=== PATIENT | female | born 2000 | race African-American/Black ===

== ENCOUNTER 2023-12-14 16:13 | Emergency (ER) | payer MEDICAID, SELFPAY ==
--- NOTE | ~2023-12-14 | XR_ITS ---
EXAMINATION: XR ABDOMEN KUB CLINICAL INDICATION: Abdominal pain COMPARISON: None available. TECHNIQUE: AP view of the abdomen. FINDINGS: The bowel gas pattern is normal with no evidence of ileus or obstruction. No unusual soft tissue calcifications are noted. The bones are unremarkable. XR/XR KUB IMPRESSION: Unremarkable examination.
--- NOTE | 2023-12-14 16:23 | ED.FEMALEGU ---
HPI - Female Genitourinary General Chief complaint: Abdominal Pain Stated complaint: unable to void, abd pain, back cramps Time Seen by Provider: 12/14/23 17:24 Source: patient Mode of arrival: ambulatory Limitations: no limitations History of Present Illness HPI Narrative: 23-year-old female who presents emergency department for evaluation of abdominal pain which began at midnight. The patient states she woke up suddenly with lower abdominal pain. She describes the pain is a sharp cramping pain she points to her suprapubic area. She states the pain is been intermittent. The pain is 10/10 at its worse and at the time my evaluation the pain was 7/10. The patient had associated nausea with vomiting. She had multiple episodes of loose diarrheal stool and she states she did notice some blood in the stool. She denied fever, chills, rhinorrhea, sore throat, cough, chest pain, shortness of breath. She denied frequency, urgency or dysuria. She denied myalgias arthralgias. Related Data Previous Rx's Medication Instructions Recorded acetaminophen 500 mg tablet 1,000 mg (2 x 500 mg) PO Q6H PRN 12/14/23 (Tylenol Extra Strength) fever or pain #20 tabs ibuprofen 400 mg tablet 400 mg PO TID PRN fever or pain 12/14/23 #30 tabs ondansetron 4 mg disintegrating 4 mg PO Q6-8H PRN nausea and 12/14/23 tablet vomiting #14 tabs Allergies Allergy/AdvReac Type Severity Reaction Status Date / Time No Known Allergies Allergy Verified 12/14/23 16:23 Review of Systems Review of Systems: Yes all other systems are reviewed and are negative [facility] Past Medical History [facility] Narrative: Social history: The patient denies tobacco use. She occasionally drinks alcohol. She does smoke marijuana 5 times a week. Social History Social History Smoked in Last 30 Days: No Use of substances other than those prescribed or required for medical reasons: Yes Substance Use Type: Marijuana Patient : No Physical Exam Vital Signs: Vital Signs: Last Vital Signs Temp 97.3 F 12/14/23 16:24 Pulse 91 12/14/23 16:24 Resp 18 12/14/23 16:24 BP 114/72 12/14/23 16:24 Pulse Ox 100 12/14/23 16:24 O2 Del Method Room Air 12/14/23 16:24 BMI result Body Mass Index 27.0 Vital signs were normal Exam: General: Awake, alert in no distress Head: Normocephalic, atraumatic EENT: PERRL, Lids normal, sclera normal, conjunctiva normal, nose normal , ears normal, throat without erythema or exudates Neck: Supple, no adenopathy Lung: breath sounds symmetric, no wheezing, rales or rhonchi Chest: symmetric movement, nontender Heart: regular rate and rhythm, normal S1, S2 no murmurs or rubs Abdomen: soft, non-tender, nondistended, normal bowel sounds Back: no vertebral tenderness, no CVAT Extremities: no deformities, moves all extremities symmetrically Neuro: Awake, alert, oriented, normal speech, cranial nerves intact, moves all extremities symmetrically Psych: Pleasant, cooperative Course Course Course Narrative: This is an RME: Additional HPI, ROS, PE not included below will be deferred to primary provider. Patient is a 23-year-old female who presents emergency department for evaluation of ABD pain, cramping, diarrhea with onset last night. reports bright red mucous in bowel movement. Denies fevers, chills, nausea, vomting, no hx of prior. Plan: labs, viral testing, KUB Medical Decision Making Medical Decision Making MDM Narrative: 23-year-old female who presents emergency department for evaluation of abdominal pain which began at midnight pain is intermittent, suprapubic cramping/are pain 10/10 at its worse associated with nausea without vomiting, multiple episodes of diarrhea with some blood in the diarrhea. She denied myalgias, arthralgias, frequency, urgency or dysuria. Vital signs were normal. Physical examination was unremarkable with no localizing abdominal tenderness. Differential diagnosis: ?Includes but is not limited to viral syndrome, COVID-19, RSV, influenza, electrolyte abnormalities, anemia, related pain Following evaluation was ordered: CBC, CMP, lipase, urine test, urinalysis, COVID-19, RSV, influenza Patient was initially treated with the following: Zofran 4 mg ODT, ibuprofen 400 mg Course: 17:48 My interpretation patient's laboratory evaluation is as follows: WBC low 4700. CMP was normal. Lipase was normal. Urine test negative. Urinalysis was negative. COVID-19, RSV and influenza were negative Patient's presentation is consistent with acute viral syndrome with nausea and diarrhea. Patient was given prescriptions for Zofran 4 mg ODT, Tylenol and ibuprofen. She was given printed and verbal instructions and discharged home. Admission/Observation Consideration of admission/observation: Escalation of care including admission/observation considered Lab Data MDM Lab Attestation statement: I reviewed the patient's lab results. 12/14/23 16:38 12/14/23 16:38 Labs: Lab Results 12/14/23 12/14/23 Range/Units 16:38 16:49 WBC 4.7 L (4.8-10.8) X10*3/uL RBC 4.48 (4.20-5.50) X10*6/uL Hgb 12.2 (12.0-16.0) g/dl Hct 36.9 L (37.0-47.0) % MCV 82.4 (80.0-98.0) fL MCH 27.2 (27.0-33.0) pg MCHC 33.1 (31.0-35.0) g/dl RDW 14.2 (11.0-16.0) % Plt Count 257 (160-400) X10*3/uL MPV 8.7 L (9.4-12.3) fL Immature Gran % (Auto) 0.2 (0.0-0.4) % Neut % (Auto) 52.9 (45-73) % Lymph % (Auto) 35.3 (20-40) % [place] % (Auto) 8.7 (2-11) % Eos % (Auto) 2.3 (0-4) % Baso % (Auto) 0.6 (0-2) % Lymph # (Auto) 1.7 (1.2-4.9) X10*3/uL [place] # (Auto) 0.4 (0.1-1.2) X10*3/uL Eos # (Auto) 0.1 (0.0-0.4) X10*3/uL Baso # (Auto) 0.0 (0.0-0.2) X10*3/uL Abs Immat Gran (auto) 0.01 (0.00-0.03) X10*3/uL Absolute Neuts (auto) 2.5 (2.0-8.3) x10*3/uL Absolute Nucleated RBC 0.000 (0.0-0.012) X10*3/uL Nucleated RBC % (auto) 0.0 (0.0-0.2) /100WBC Sodium 138 (135-145) mmol/L Potassium 3.6 (3.3-5.1) mmol/L Chloride 107 (96-108) mmol/L Carbon Dioxide 25 (22-29) mmol/L Anion Gap 10 L (12-20) BUN 9 (9-16) mg/dL Creatinine 0.72 (0.5-1.4) mg/dL Estim Creat Clear Calc 135.3 Estimated GFR > 60 Random Glucose 78 (60-115) mg/dL Calcium 9.0 (8.4-10.2) mg/dL Total Bilirubin 0.8 (0.0-1.0) mg/dL AST 21 (5-31) U/L ALT 26 (0-31) U/L Alkaline Phosphatase 72 (39-117) U/L Total Protein 7.6 (6.5-8.0) g/dL Albumin 4.1 (3.5-5.0) g/dL Lipase 19 (8-78) U/L Urine Color Yellow Urine Appearance Clear Urine pH 7.5 (5.0-9.0) Ur Specific [place] 1.020 (1.005-1.025) Urine Protein Negative (Neg-Trace) mg/dL Urine Glucose (UA) Negative (Negative) mg/dL Urine Ketones Negative (Negative) mg/dL Urine Blood Negative (Negative) Urine Nitrite Negative (Negative) Ur Leukocyte Esterase Negative (Negative) Urine Test NEGATIVE (NEGATIVE) Influenza Type A (PCR) NEGATIVE (Negative) Influenza Type B (PCR) NEGATIVE (Negative) RSV RNA Qual (PCR) NEGATIVE (Negative) SARS-CoV-2 RNA (RT-PCR) NEGATIVE (Negative) Prescription Management I considered prescription management with: Pain Medication and Other (Antiemetics) Discharge Plan Discharge Clinical Impression: Viral syndrome, Diarrhea, Nausea Patient Disposition: Home, Self-Care Instructions: Viral Syndrome (ED) Additional Instructions: Your blood work was unremarkable except for slightly low white blood cell count which is caused by a viral infection. Your COVID-19, influenza and RSV tests were negative Your symptoms are most likely consistent with a viral infection which is causing your abdominal pain, nausea and diarrhea. Take ibuprofen 200 mg pills, 2 pills every 6 hours as needed for pain or fever. Take Tylenol (acetaminophen) 500 mg pills, 2 pills every 6 hours as needed for pain or fever. Take Zofran ODT 4 mg pills, 1 pill dissolved in your mouth every 8 hours as needed for nausea and vomiting. Follow-up with your doctor in 2 days. Please return to the emergency department if your symptoms get worse or if you develop any symptoms that are concerning to you. Prescriptions: New acetaminophen [Tylenol Extra Strength] 500 mg tablet 1,000 mg PO Q6H PRN (Reason: fever or pain) Qty: 20 0RF ibuprofen 400 mg tablet 400 mg PO TID PRN (Reason: fever or pain) Qty: 30 0RF ondansetron 4 mg tablet,disintegrating 4 mg PO Q6-8H PRN (Reason: nausea and vomiting) Qty: 14 0RF
[2023-12-14 16:24] VITALS: BP 114/72; PULSE 91; RESP 18; TEMP 36.3; O2SAT 100; BMI 27.0
[2023-12-14 16:43] LABS: MANUAL DIFF FLAG NO
[2023-12-14 16:45] LABS: Basophils Percent Auto 0.6 % (0-2); Eosinophils Absolute Auto 0.1 X10*3/uL (0.0-0.4); Eosinophils Percent Auto 2.3 % (0-4); Hematocrit 36.9 % (37.0-47.0); Hemoglobin 12.2 g/dl (12.0-16.0); Imm Gran Abs Auto 0.01 X10*3/uL (0.00-0.03); Imm Gran Pct Auto 0.2 % (0.0-0.4); Lymphocytes Absolute Auto 1.7 X10*3/uL (1.2-4.9); Lymphocytes Percent Auto 35.3 % (20-40); Mean Corpuscular HGB Conc 33.1 g/dl (31.0-35.0); Mean Corpuscular Hemoglobin 27.2 pg (27.0-33.0); Mean Corpuscular Volume 82.4 fL (80.0-98.0); Mean Platelet Volume 8.7 fL (9.4-12.3); Monocytes Absolute Auto 0.4 X10*3/uL (0.1-1.2); Monocytes Percent Auto 8.7 % (2-11); Neutrophils Absolute Auto 2.5 x10*3/uL (2.0-8.3); Neutrophils Percent Auto 52.9 % (45-73); Platelet Count 257 X10*3/uL (160-400); Red Blood Count 4.48 X10*6/uL (4.20-5.50); Red Cell Distribution Width 14.2 % (11.0-16.0); White Blood Count 4.7 X10*3/uL (4.8-10.8)
[2023-12-14 16:59] LABS: Alanine Aminotransferase 26 U/L (0-31); Albumin Level 4.1 g/dL (3.5-5.0); Alkaline Phosphatase 72 U/L (39-117); Anion Gap 10 (12-20); Aspartate Amino Transferase 21 U/L (5-31); Bilirubin Total 0.8 mg/dL (0.0-1.0); Blood Urea Nitrogen 9 mg/dL (9-16); Carbon Dioxide 25 mmol/L (22-29); Chloride 107 mmol/L (96-108); Creatinine Clr Calc Pharmacy 135.3; Estimated Glomerular Filt Rate > 60; Glucose Random 78 mg/dL (60-115); Lipase 19 U/L (8-78); Potassium 3.6 mmol/L (3.3-5.1); Sodium 138 mmol/L (135-145); Total Protein 7.6 g/dL (6.5-8.0)
[2023-12-14 17:14] LABS: Appearance Urine Clear; Color Urine Yellow; Glucose Urine UA Negative (Negative); Leukocyte Esterase Urine Negative (Negative); Nitrite Urine Negative (Negative); PH 7.5 (5.0-9.0); Urine Blood Negative (Negative); Urine Ketones Negative (Negative); Urine Protein Negative (Neg-Trace)
[2023-12-14 17:17] LABS: UPreg QC Valid YES; Urine Pregnancy NEGATIVE (NEGATIVE)
[2023-12-14 17:30] LABS: Influenza A PCR NEGATIVE (Negative); Influenza B PCR NEGATIVE (Negative); Resp Syncy Virus RNA Qual PCR NEGATIVE (Negative); SARS COV2 PCR INHOUSE NEGATIVE (Negative)
[2023-12-14] MEDS: Ibuprofen 400 MG TABLET PO (18:14)
[2023-12-14] MEDS: Ondansetron ODT 4 MG TAB.RAPDIS TRANSLINGU (18:15)
[2023-12-14 18:16] VITALS: BP 105/59; PULSE 52; RESP 16; TEMP 36.6; O2SAT 100
== END 2023-12-14 18:22 | disposition home or self-care (01) ==
PROVIDERS: Nurse Practitioner Family; Emergency Provider Emergency Medicine Emergency Medical Services
DX: B34.9 Viral infection, unspecified (principal); R19.7 Diarrhea, unspecified; R11.0 Nausea
CPT/HCPCS: 0241U; 36415; 74018; 80053; 81003; 81025; 83690; 85025; 99283; 99284

== ENCOUNTER 2024-10-09 08:40 | Emergency (ER) | payer MEDICAID, SELFPAY ==
--- NOTE | ~2024-10-09 | XR_ITS ---
CLINICAL HISTORY: pain Three views left foot Comparison: None Findings: No acute fracture or dislocation. Perhaps mild soft tissue swelling distal 1st toe. Punctate density appears to be on the skin surface suggesting debris. No soft tissue gas or penetrating foreign body. Joints intact. Impression: No acute bone or joint abnormality. This document has been electronically signed by: Lokesh Raymundo MD on 10/09/2024 09:27:28
--- NOTE | 2024-10-09 08:42 | ECG_ITS ---
Test Reason : cp Blood Pressure : */* mmHG Vent. Rate : 64 BPM Atrial Rate : 64 BPM P-R Int : 142 ms QRS Dur : 82 ms QT Int : 364 ms P-R-T Axes : 43 61 32 degrees QTcB Int : 375 ms Normal sinus rhythm Normal ECG No previous ECGs available Referred By: Generic ED Physician Electronically Signed By: MONI CHEN MD
[2024-10-09 08:47] VITALS: BP 121/75; PULSE 77; RESP 20; TEMP 36.2; O2SAT 100; BMI 27.2
[2024-10-09 09:01] LABS: MANUAL DIFF FLAG NO
[2024-10-09 09:05] LABS: Basophils Absolute Auto 0.1 X10*3/uL (0.0-0.2); Basophils Percent Auto 1.1 % (0-2); Eosinophils Absolute Auto 0.3 X10*3/uL (0.0-0.4); Eosinophils Percent Auto 6.5 % (0-4); Hematocrit 38.1 % (37.0-47.0); Hemoglobin 12.6 g/dl (12.0-16.0); Imm Gran Abs Auto 0.02 X10*3/uL (0.00-0.03); Imm Gran Pct Auto 0.4 % (0.0-0.4); Lymphocytes Absolute Auto 2.1 X10*3/uL (1.2-4.9); Lymphocytes Percent Auto 44.3 % (20-40); Mean Corpuscular HGB Conc 33.1 g/dl (31.0-35.0); Mean Corpuscular Hemoglobin 27.2 pg (27.0-33.0); Mean Corpuscular Volume 82.1 fL (80.0-98.0); Mean Platelet Volume 8.5 fL (9.4-12.3); Monocytes Absolute Auto 0.4 X10*3/uL (0.1-1.2); Neutrophils Absolute Auto 1.9 x10*3/uL (2.0-8.3); Neutrophils Percent Auto 39.7 % (45-73); Platelet Count 273 X10*3/uL (160-400); Red Blood Count 4.64 X10*6/uL (4.20-5.50); Red Cell Distribution Width 14.7 % (11.0-16.0); White Blood Count 4.7 X10*3/uL (4.8-10.8)
[2024-10-09 09:20] LABS: Alanine Aminotransferase 21 U/L (0-31); Albumin Level 4.1 g/dL (3.5-5.0); Alkaline Phosphatase 70 U/L (39-117); Anion Gap 9 (12-20); Aspartate Amino Transferase 21 U/L (5-31); Bilirubin Direct 0.2 mg/dL (0.0-0.5); Bilirubin Total 0.4 mg/dL (0.0-1.0); Blood Urea Nitrogen 14 mg/dL (9-16); Calcium 9.2 mg/dL (8.4-10.2); Carbon Dioxide 23 mmol/L (22-29); Chloride 109 mmol/L (96-108); Creatinine Clr Calc Pharmacy 127.5; Estimated Glomerular Filt Rate > 60; Glucose Random 88 mg/dL (60-115); Lipase 23 U/L (8-78); Potassium 4.2 mmol/L (3.3-5.1); Sodium 137 mmol/L (135-145)
--- OUTSIDE RECORDS SUMMARY | 2024-10-09 09:27 | XMS_ITS | Encounter Summary ---
Author Organization [facility] Address [address] [place], [place] [phone] Phone Care Team Providers Care De Icer Name Role Phone Hillary Rooney MD Primary Care Provider Unavailabl e Encounter Details Date Type Department Care Team (Late st Contact Info) Description 07/16/2013 Documentation [facility] [address] [place], [place] [phone] Family Medicine, Physician [address] [place] [address] Social History Tobacco Use Types Packs/Day Years Used Date Smoking Tobacco: Never Assessed Comments Unknown Sex and Gender Information Value Date Recorded Sex Assigned at Not on file Legal Sex Female 5:04 PM EDT Gender Identity Not on file Sexual Orientation Not on file documented as of this encounter Plan of Treatment Not on file documented as of this encounter Visit Diagnoses Not on filedocumented in this encounter Care Teams De Icer Relationship Specialty Start Date End Date Hillary Rooney MD PCP - General 04/25/17 documented as of this encounter
--- OUTSIDE RECORDS SUMMARY | 2024-10-09 09:27 | XMS_ITS | Encounter Summary ---
Author Organization [employer] Address [address] [facility] [address] [place] [id number] Care Team Providers Care Fish Straightener Name Role Phone Adithya Collins MD Primary Care Prov ider Reason for Visit * Reason Onset Date Comments new patient visit 07/08/2024 Encounter Details Date Type Department Care Team (Late st Contact Info) Description 07/08/2024 Telephone [facility] [address], [place] [phone] Adithya Collins MD [address], [place] [phone] new patient visit Social History Tobacco Use Types Packs/Day Years Used Date Smoking Tobacco: Never Assessed Comments Unknown Sex and Gender Information Value Date Recorded Sex Assigned at Not on file Legal Sex Female 11:46 AM EDT Gender Identity Not on file Sexual Orientation Not on file documented as of this encounter Miscellaneous Notes * Telephone Encounter - Jules Barber - 07/08/2024 12:07 PM EDT TC placed to patient for scheduling of new patient visit. Agreed to 07/[address] Turner No Medical Conditions Last seen at back in 2021 at a [facility] Apptmnt reminder and release form sent via mail . documented in this encounter Plan of Treatment Not on file documented as of this encounter Visit Diagnoses Not on filedocumented in this encounter Care Teams Fish Straightener Relationship Specialty Start Date End Date Adithya Collins MD [address], [place] [phone] PCP - General Internal Medicine 07/19/24 documented as of this encounter
--- OUTSIDE RECORDS SUMMARY | 2024-10-09 09:27 | XMS_ITS | Clinical Summary ---
Author Organization [facility] Address [address] [place] [phone] Phone Care Team Providers Care Retail Merchandising Coordinator Name Role Phone Hillary Rooney MD Primary Care Provider Unavailabl e Immunizations Name Administration Dates Next Due DTaP 07/24/2004, 2,01/09/2001, 001,2000 HPV, Quadrivalent 01/20/2014,05/11/2010,12/28/19 10 Hep A, ped/adol 01/20/2014,05/11/2010 Hep B, ped/adol 10/29/2001,2000,2000 Hib (HbOC) 10/29/2001,2000 IPV 07/24/2007, 1,2000, 000 Influenza, injectable, quadrivalent 07/14/2015 MMR 07/24/2004,10/29/2001 Meningococcal Conj (Menactra) MCV4P 01/20/2014 Pneumococcal Conjugate 07/24/2004,2000,2000, 000 Pneumococcal Polysaccharide 2000, 0 Tdap 01/20/2014 Varicella 08/14/2007,10/29/2001 Family History Relation Name Status Comments Brother Alive Brother: Alive and well Father Alive Father: Alive a nd well Mother Alive Mother: Alive a nd well Other No family histo ry of Hyperlipidemia, No family history of Depression, No family history of Obesity, No family history of ADD/ADHD, No family history of *Sudden /MO under 55, No family history of Diabetes mellitus, No family history of Cancer, No family history of *CVA/Stroke, No family history of Migraines, No family history of *Heart Disease, No family history of Asthma, No family history of Strabismus, No family history of Seizure disorder, No family history of *Thrombophilia Sister Alive Sister: Alive a nd well Social History Tobacco Use Types Packs/Day Years Used Date Smoking Tobacco: Never Comments:Never smoker Comments Unknown Sex and Gender Information Value Date Recorded Sex Assigned at Not on file Legal Sex Female 5:04 PM EDT Gender Identity Not on file Sexual Orientation Not on file Last Filed Vital Signs Vital Sign Reading Time Taken Comments Blood Pressure 99/70 01/14/2017 12:00 AM EDT Pulse 58 01/14/2017 12:00 AM EDT Temperature 36.6 ??C (97.9 ??F) 11/16/2015 12:[address] Respiratory Rate - - Oxygen Saturation - - Inhaled Oxygen Concentration - - Weight 72.4 kg (159 lb 9.6 oz) 01/14/2017 12:00 AM EDT Height 174 cm (5' 8.5 ) 01/14/2017 12:00 AM EDT Body Mass Index 23.91 01/14/2017 12:00 AM EDT Plan of Treatment Health Maintenance Due Date Last Done Comments Consider Men B Vaccine (1 of 2 - Bexsero 2-dose series) 2016 DTaP,Tdap,and Td Vaccines (7 - Td or Tdap) 01/21/2024 01/20/2014, 07/24/2004, 12/31/2001, Additional history exists Influenza Vaccines (#1) 2024 07/14/2015 COVID-19 Vaccine ( season) 2024 HIB Vaccines Completed 10/29/2001, 2000 Hepatitis B Vaccines Completed 10/29/2001, 2000, 2000 MMR Vaccines Completed 07/24/2004, 10/29/2001 Pneumococcal Vaccine Completed 07/24/2004, 05/12/2001, 2000, Additional history exists IPV Vaccines Completed 07/24/2007, 04/16, 2000, Additional history exists Varicella Vaccines Completed 08/14/2007, 10/29/2001 HPV Vaccines Completed 01/20/2014, 04/16, 12/27/2009 Hepatitis A Vaccines Completed 01/20/2014, 05/11/20 10 Meningococcal Vaccine Aged Out 01/20/2014 No andree lazaro eligible based on patient's age to complete this topic Men B Vaccine Aged Out No longer elig ible based on patient's age to complete this topic Insurance [facility] NON PCC Care Teams Retail Merchandising Coordinator Relationship Specialty Start Date End Date Hillary Rooney MD PCP - General 04/25/17
--- OUTSIDE RECORDS SUMMARY | 2024-10-09 09:27 | XMS_ITS | Encounter Summary ---
Author Organization [facility] Address [address] [place], [place] [phone] Phone Care Team Providers Care Vehicle Body Maker Name Role Phone Hillary Rooney MD Primary Care Provider Unavailabl e Encounter Details Date Type Department Care Team (Late st Contact Info) Description 07/16/2013 Documentation [facility] [address] [place], [place] [phone] Family Medicine, Physician [address] [place] [address] Social History Tobacco Use Types Packs/Day Years [...] on filedocumented in this encounter Care Teams Vehicle Body Maker Relationship Specialty Start Date End Date Hillary Rooney MD PCP - General 04/25/17 documented as of this encounter
--- OUTSIDE RECORDS SUMMARY | 2024-10-09 09:27 | XMS_ITS | Clinical Summary ---
Author Organization [employer] Address [address] [facility] [address] [place] [address] Care Team Providers Care Financial Planning Advisor Name Role Phone Adithya Collins MD Primary Care Prov ider Social History Tobacco Use Types Packs/Day Years Used Date Smoking Tobacco: Never Assessed Comments Unknown Sex and Gender Information Value Date Recorded Sex Assigned at Not on file Legal Sex Female 11:46 AM EDT Gender Identity Not on file Sexual Orientation Not on file Plan of Treatment Health Maintenance Due Date Last Done Comments Depression Screening 2000 HIV Screening 2000 SDOH Screening 2000 Alcohol/Substance Use Screening 2012 Tobacco Screening 2012 Family Planning (PISQ) 2015 Hepatitis C Screening 2018 Pap Smear 2021 DTaP/Tdap/Td Vaccines (7 - Td or Tdap) 01/21/2024 01/20/2014, 07/24/2004, 12/31/2001, Additional history exists COVID-19 Vaccine ( - 2023- season) 2024 Influenza Vaccine (#1) 2024 07/04/2022, 2014 Zoster Vaccines (1 of 2) 2050 RSV Patients and Patients Aged 60 years or older (1 - 1-dose 75+ series) 2075 HIB Vaccines Completed 10/29/2001, 2000 Hepatitis B Vaccines Completed 10/29/2001, 2000, 2000 Pneumococcal Vaccine: Pediatrics (0 to 5 Years) and At-Risk Patients (6 to 64 Years) Aged Out 07/24/2004, 05/12/2001, 2000, Additional history exists No longer eligible based on patient's age to complete this topic IPV Vaccines Completed 07/24/2007, 04/16, 2000, Additional history exists HPV Vaccines Completed 01/20/2014, 04/16, 12/27/2009 Hepatitis A Vaccines Completed 01/20/2014, 05/11/20 10 Meningococcal Vaccine Aged Out 01/20/2014 No andree lazaro eligible based on patient's age to complete this topic RSV under 20 months Aged Out No longe r eligible based on patient's age to complete this topic Rotavirus Vaccines Aged Out No longer eligible based on patient's age to complete this topic Insurance [address] [place] [address] Care Teams Financial Planning Advisor Relationship Specialty Start Date End Date Adithya Collins MD [address] [place] [phone] PCP - General Internal Medicine 07/19/24
--- OUTSIDE RECORDS SUMMARY | 2024-10-09 09:27 | XMS_ITS | Encounter Summary ---
Author Organization [facility] Address [address] [place] [address] Phone Care Team Providers Care Dean Of Men Name Role Phone Hillary Rooney MD Primary Care Provider Unavailabl e Encounter Details Date Type Department Care Team (Late st Contact Info) Description 05/01/2017 Conversion Encounter [facility] - [address] [phone] Social History Tobacco Use Types Packs/Day Years [...] on filedocumented in this encounter Care Teams Dean Of Men Relationship Specialty Start Date End Date Hillary Rooney MD PCP - General 04/25/17 documented as of this encounter
[2024-10-09 09:33] LABS: Troponin-I High Sensitivity < 2.7 ng/L (<3.5-17.0)
--- NOTE | 2024-10-09 09:59 | ED.GENADULT ---
HPI - General Adult General Chief complaint: General Medical Stated complaint: On and off CP, vaginal cyst? Time Seen by Provider: 10/09/24 09:04 Source: patient Mode of arrival: ambulatory Limitations: no limitations History of Present Illness ED Provider: Kallie Burt NP HPI narrative: Patient is a 24-year-old female who presents to the emergency department for evaluation of multiple complaints. 1. She reports that she has been experiencing intermittent chest pain for many years since she was a younger child. Reports it usually will occur for a minute or 2 and is often felt through various areas of her chest. She states that if she takes it slow deep breath the pain will typically resolve. She is not certain whether anything was done for this as a child or not. But she states in any recent adult years of her life she has not sought care with her primary care doctor in regards to this. She does state that this is ?the least of my concerns? but she thought she should have evaluation since she was already here. She denies any headache, dizziness, lightheadedness, shortness of breath, difficulty breathing, numbness or tingling of the extremities. 2. There is a lesion on her left labia with onset 1 week ago. Reports that it did drain a pus-like drainage, she thought that perhaps this was from a hair follicle. She does admit that she was previously shaving the pubic hairs but has recently started waxing. She denies concern for sexually transmitted infection. She believes the areas filling back up again and would like it to be evaluated. She denies significant pain to the area, abnormal vaginal discharge or bleeding or additional lesions 3. Reports that 3-4 weeks ago she stubbed her left great toe, she has continued to notice pain occasionally. Particularly at the MCP joint and after wearing certain footwear. She denies ever having any issue with pain to this area in the past. Reports that she typically does wear a shoe with a flat rigid sole. Denies any redness or swelling or deformity. Has not tried any OTC treatment for this. Related Data Previous Rx's ?Medication ?Instructions ?Recorded acetaminophen 500 mg tablet 1,000 mg (2 x 500 mg) PO Q6H PRN 12/14/23 (Tylenol Extra Strength) fever or pain #20 tabs ibuprofen 400 mg tablet 400 mg PO TID PRN fever or pain 12/14/23 #30 tabs ondansetron 4 mg disintegrating 4 mg PO Q6-8H PRN nausea and 12/14/23 tablet vomiting #14 tabs Allergies Allergy/AdvReac Type Severity Reaction Status Date / Time No Known Allergies Allergy Verified 10/09/24 08:50 Review of Systems Review of Systems: Yes all other systems are reviewed and are negative [facility] Past Medical History Attestation statement: The following information was validated with the patient. Source: old records reviewed Social History Social History Substance Use Type: Marijuana Advance Directives: No Advance Directives Information Provided: No Do you have a plan to hurt others: No Plan Physical Exam ED Vital Signs: Vital Signs - 24 hr 10/09/24 08:47 Temperature 97.1 F Pulse Rate 77 Respiratory Rate 20 Blood Pressure 121/75 Pulse Oximetry 100 Oxygen Delivery Method Room Air BMI result Body Mass Index 27.2 Appearance: Alert.?Oriented to person, place and time. No acute distress.?Normal affect. CVS: Heart sounds normal. Normal heart rate and rhythm.? Pulses normal.?? Respiratory: No respiratory distress.? Lung sounds clear to auscultation bilaterally?? Skin: Skin warm and dry.? Normal skin color.? External genital: Performed with door worker; ED RN Laura. The left upper external labia/mons pubis has a small 0.25 cm indurated follicle without surrounding erythema or fluctuance Extremities: No lower extremity edema.? No calf ttp. Left great toe without erythema warmth or notable deformity. She does have a mild bunion at the left 1st MCP. Full range of motion to the digit. No podagra. Neuro: Moves all extremities spontaneously. Sensation intact bilaterally. Ambulates with normal steady gait. Medical Decision Making Medical Decision Making MDM Narrative: Patient is a 24-year-old female presents to the emergency department for evaluation of multiple complaints. A regards to her chest pain, this has been chronic for many years it is very intermittent and brief lasting only minutes and self-resolving. Has had no acute change to the pattern of this pain. She simply wanted to seek evaluation for it since she was already in the emergency department. The pain is non radiating, it is not brought on with exertion, unable to identify exacerbating or alleviating factors. Days will past where she does not experience the pain. In review of serum labs obtained prior to my assumption of care CBC is without leukocytosis, no anemia or thrombocytopenia. No electrolyte derangement. No ELIF. LFTs within normal range. High sensitive troponin below detectable limits. EKG revealing a normal sinus rhythm with ventricular rate of 64, QTC 375, no ST elevation, no ST depression. Not consistent with ACS. PERC negative unlikely pulmonary embolism. I did discuss with her the possibility for an arrhythmia, she should seek evaluation by her primary care doctor potentially have an outpatient Holter monitor, we also discussed the possibility for musculoskeletal pain in the chest, potentially anxiety as a contributing factor. Reviewed worrisome signs and symptoms that would warrant further evaluation. In regards to the lesion on her labia, there is a single area of what appears to be healing folliculitis, the area had previously drained pus-like drainage by her account, there is currently no active drainage. There is no surrounding erythema or warmth. She does state that the area is slightly tender to touch. Unable to manually express any drainage that would be amenable to gram stain/culture, or HSV lesions swab. I did discuss with her the potential for HPV/syphilis though given appearance I suspect that this is less likely. Discussed with her warm moist compresses/Sitz bath, topical bacitracin ointment. If not resolved within the next week she should follow up with her primary care/welt sole layer for further evaluation. Should things worsen she should seek re-evaluation In regards to the left great toe pain, on evaluation she does have a mild bunion to this area there was no erythema warmth, no pain with manipulation of the great toe no obvious deformity. Appears less consistent with gouty arthritis. XR was obtained there was no evidence of acute fracture dislocation. I did discuss with her in general pain that can evolve over time with a bunion in particular footwear such as a hard rigid sole limiting the range of motion to the foot/MCP. Additionally discussed that an injury such as stabbing of the toe may provoke pain and inflammation to this area. Advised use of NSAID, appropriate footwear, outpatient follow-up with PCP Differential Diagnosis Differential Diagnoses: The differential diagnosis associated with the presentation includes (See narrative above) Admission/Observation Consideration of admission/observation: Escalation of care including admission/observation considered (See narrative above) Lab Data MDM Lab Attestation statement: I reviewed the patient's lab results. (See narrative above) 10/09/24 08:57 10/09/24 08:57 Labs: Lab Results 10/09/24 Range/Units 08:57 WBC 4.7 L (4.8-10.8) X10*3/uL RBC 4.64 (4.20-5.50) X10*6/uL Hgb 12.6 (12.0-16.0) g/dl Hct 38.1 (37.0-47.0) % MCV 82.1 (80.0-98.0) fL MCH 27.2 (27.0-33.0) pg MCHC 33.1 (31.0-35.0) g/dl RDW 14.7 (11.0-16.0) % Plt Count 273 (160-400) X10*3/uL MPV 8.5 L (9.4-12.3) fL Immature Gran % (Auto) 0.4 (0.0-0.4) % Neut % (Auto) 39.7 L (45-73) % Lymph % (Auto) 44.3 H (20-40) % [place] % (Auto) 8.0 (2-11) % Eos % (Auto) 6.5 H (0-4) % Baso % (Auto) 1.1 (0-2) % Lymph # (Auto) 2.1 (1.2-4.9) X10*3/uL [place] # (Auto) 0.4 (0.1-1.2) X10*3/uL Eos # (Auto) 0.3 (0.0-0.4) X10*3/uL Baso # (Auto) 0.1 (0.0-0.2) X10*3/uL Abs Immat Gran (auto) 0.02 (0.00-0.03) X10*3/uL Absolute Neuts (auto) 1.9 L (2.0-8.3) x10*3/uL Absolute Nucleated RBC 0.000 (0.0-0.012) X10*3/uL Nucleated RBC % (auto) 0.0 (0.0-0.2) /100WBC Sodium 137 (135-145) mmol/L Potassium 4.2 (3.3-5.1) mmol/L Chloride 109 H (96-108) mmol/L Carbon Dioxide 23 (22-29) mmol/L Anion Gap 9 L (12-20) BUN 14 (9-16) mg/dL Creatinine 0.76 (0.5-1.4) mg/dL Estim Creat Clear Calc 127.5 Estimated GFR > 60 Random Glucose 88 (60-115) mg/dL Calcium 9.2 (8.4-10.2) mg/dL Total Bilirubin 0.4 (0.0-1.0) mg/dL Direct Bilirubin 0.2 (0.0-0.5) mg/dL AST 21 (5-31) U/L ALT 21 (0-31) U/L Alkaline Phosphatase 70 (39-117) U/L Troponin I High Sens < 2.7 (<3.5-17.0) ng/L Total Protein 8.0 (6.5-8.0) g/dL Albumin 4.1 (3.5-5.0) g/dL Lipase 23 (8-78) U/L Independent Interpretation I performed an independent interpretation of an: EKG (See narrative above) External Record Review External record reviewed: Outpatient record Prescription Management I considered prescription management with: Pain Medication (NSAID) and Antibiotic (Bacitracin) Discharge Plan Discharge Clinical Impression: Atypical chest pain, Folliculitis, Great toe pain Patient Disposition: Home, Self-Care Instructions: Noncardiac Chest Pain (ED), Folliculitis (ED) Additional Instructions: Follow-up with your primary care doctor in regards to the chronic intermittent chest pain that you have been experiencing since you were a child. Blood work today is very reassuring. EKG does not show signs of an arrhythmia or a heart attack. As mentioned, the lump to the labial area appears most consistent with folliculitis or an inflammation of the follicle. There is nothing to be actively drained from the area as discussed. Apply warm moist compresses/Sitz bath next few days, you may apply topical bacitracin ointment. This does not resolve over the next week you should follow-up with PCP/distributor sales manager Regarding your toe, there is no evidence of fracture dislocation. You do however have a mild bunion to this area, of which can become painful over time even if you have not previously experienced pain to the area especially in the setting of a recent injury. This can cause inflammation. You can take ibuprofen 200 mg, 3 tablets (600mg) every 6-8 hours as needed for pain. It is also important to consider alternative footwear, certain shoes may provoke this pain. It is beneficial to have a good walking shoe with a less rigid sole that will allow for the natural movement of the foot. Prescriptions: No Action acetaminophen [Tylenol Extra Strength] 500 mg tablet 1,000 mg PO Q6H PRN (Reason: fever or pain) Qty: 20 0RF ibuprofen 400 mg tablet 400 mg PO TID PRN (Reason: fever or pain) Qty: 30 0RF ondansetron 4 mg tablet,disintegrating 4 mg PO Q6-8H PRN (Reason: nausea and vomiting) Qty: 14 0RF Referrals: [facility] [Provider Group] [facility] [place] [facility] [Provider Group] [facility] [place] [facility] [Provider Group] [facility] [place] [facility] [Provider Group] [facility] [place] Primary [facility] [Provider Group] Print Language: [place]
[2024-10-09 10:51] VITALS: BP 121/75; PULSE 77; RESP 20; TEMP 36.2; O2SAT 100
== END 2024-10-09 10:51 | disposition home or self-care (01) ==
PROVIDERS: Emergency Provider Emergency Medicine
DX: R07.89 Other chest pain (principal); L73.9 Follicular disorder, unspecified; M79.675 Pain in left toe(s); F12.90 Cannabis use, unspecified, uncomplicated
CPT/HCPCS: 36415; 73630; 80048; 80076; 83690; 84484; 85025; 93005; 99283

== ENCOUNTER → 2024-10-09 08:52 | Outpatient (BNV) | payer MEDICAID, SELFPAY | PROVIDERS: Emergency Provider Emergency Medicine; Visit Provider Radiology Diagnostic Radiology | DX: M79.672 Pain in left foot (principal) | CPT/HCPCS: 73630 ==